=== PATIENT | female | born 1955 | race Caucasian/White ===

== ENCOUNTER 2016-04-12 19:18 | Emergency (ER) | payer MEDICARE, OTHER ==
[~2016-04-12] VITALS: Ht 157.5 cm; Wt 82.6 kg
[~2016-04-12 19:18] MED LIST: ALPR0.25 PO; CARV3.12 PO; ROPI1TAB PO; SERT100T PO; SIMV40TA3 PO; TRAM50TA PO; ZOLP10TA PO
[2016-04-12 20:08] VITALS: BP 142/67
[2016-04-12] MEDS ORDERED: PROMETH/CODEINE 6.25/10MG 5 ML SYRUP. PO ONE (20:45)
[2016-04-12] MEDS ORDERED: DEXAMETHASONE SOD PHOS 20 MG/5 ML VIAL. IM ONE (20:45)
[2016-04-12] MEDS ORDERED: IPRATRPIUM/ALBUTEROL 0.5/2.5MG 3 ML NEBU. NEB ONE (20:45)
[2016-04-12] MEDS ORDERED: PROAIR RESPICL90 MCG IH (20:59)
[2016-04-12] MEDS ORDERED: PROM118S2 PO (20:59)
[2016-04-12] MEDS ORDERED: BENZ100C PO (20:59)
--- NOTE | 2016-04-12 21:00 | PHYS DOC ---
Past Medical History Past Medical History: Anxiety, Depression, Fibromyalgia, High Cholesterol, Hypertension, Other Additional Past Medical Histor: RLS, insomnia Past Surgical History: Hysterectomy Alcohol Use: None Drug Use: None Adult General Chief Complaint Chief Complaint: COUGH HPI HPI Patient is a 60 year old female with history of anxiety, depression, fibromyalgia, COPD, smoking, who presents today with a productive cough for 1 month. Patient states she was seen by the primary care doctor a week ago and was put on the Z-Laz which she completed yesterday as well as prednisone. Patient states she is still coughing and wheezing. Patient denies any fever. Review of Systems Review of Systems Constitutional: Denies fever or chills [] Eyes: Denies change in visual acuity, redness, or eye pain [] HENT: Denies nasal congestion or sore throat [] Respiratory: Cough and wheezing Cardiovascular: No additional information not addressed in HPI [] GI: Denies abdominal pain, nausea, vomiting, bloody stools or diarrhea [] : Denies dysuria or hematuria [] Musculoskeletal: Denies back pain or joint pain [] Integument: Denies rash or skin lesions [] Neurologic: Denies headache, focal weakness or sensory changes [] Endocrine: Denies polyuria or polydipsia [] Current Medications Current Medications Current Medications Medications (Trade) Dose Ordered Sig/Radha Start Time Stop Time Status Last Admin Dose Admin Albuterol/ Ipratropium (Duoneb) 3 ml 1X ONCE 04/12/16 20:45 04/12/16 20:46 DC Dexamethasone Sodium Phosphate (Decadron) 10 mg 1X ONCE 04/12/16 20:45 04/12/16 20:48 DC Promethazine HCl/ Codeine (Phenergan With Codeine) 10 ml 1X ONCE 04/12/16 20:45 04/12/16 20:48 DC Allergies Allergies Allergies Coded Allergies Type Severity Reaction Last Updated Verified No Known Drug Allergies 11/13/13 No Physical Exam Physical Exam Constitutional: Well developed, well nourished, no acute distress, non-toxic appearance. [] HENT: Normocephalic, atraumatic, bilateral external ears normal, oropharynx moist, no oral exudates, nose normal. [] Eyes: PERRLA, EOMI, conjunctiva normal, no discharge. [] Neck: Normal range of motion, no tenderness, supple, no stridor. [] Cardiovascular:Heart rate regular rhythm, no murmur [] Lungs & Thorax: Small amount of wheezing to posterior lung bases. Abdomen: Bowel sounds normal, soft, no tenderness, no masses, no pulsatile masses. [] Skin: Warm, dry, no erythema, no rash. [] Back: No tenderness, no CVA tenderness. [] Extremities: No tenderness, no cyanosis, no clubbing, ROM intact, no edema. [] Neurologic: Alert and oriented X 3, normal motor function, normal sensory function, no focal deficits noted. [] Psychologic: Affect normal, judgement normal, mood normal. [] Current Patient Data Vital Signs Vital Signs Date Time Temp Pulse Resp B/P Pulse Ox O2 Delivery O2 Flow Rate FiO2 04/12/16 20:08 97.9 86 18 98 Room Air 97.9 EKG EKG [] Radiology/Procedures Radiology/Procedures [] Course & Med Decision Making Course & Med Decision Making Pertinent Labs and Imaging studies reviewed. (See chart for details) Patient is in the ED with cough and wheezing for 1 month. She was already seen by the primary care doctor and just finished Z-Laz as well as prednisone yesterday. She is a smoker and we talked about smoking cessation. Chest x-ray interpreted by Dr. Lee is negative for any acute findings. She probably has acute viral bronchitis. Encouraged to continue using breathing treatments at home. Given a DuoNeb treatment and Decadron IM in the ED. Lungs cleared up. Instructed to follow-up with the primary care doctor in the next 7 days. Instructed to return to the ED symptoms worsen. Dragon Disclaimer Dragon Disclaimer This electronic medical record was generated, in whole or in part, using a voice recognition dictation system. Departure Departure Impression: Primary Impression: Acute bronchitis Additional Impression: Smoking addiction Disposition: HOME, SELF-CARE Condition: STABLE Referrals: YUAN DALAL MD (PCP) follow up with your doctor in one week Patient Instructions: Acute Bronchitis, [id number] Additional Instructions: You were seen for ongoing acute bronchitis. Consider smoking cessation. Follow- up with your own primary care doctor in the next 7 days, continue doing the breathing treatments. Come back to the emergency room for any concerning symptoms. Scripts Promethazine Hcl/Codeine (Promethazine-Codeine Syrup)118 Ml Syrup5 Ml PO Q4- 6HRS #80 ML Prov:BIBIANA NOLASCO APRN 04/12/16 Benzonatate (Tessalon Perle)100 Mg Capsule1 Cap PO TID #30 CAP Prov:BIBIANA NOLASCO APRN 04/12/16 Albuterol Sulfate (Proair Respiclick)90 Mcg Aer.[id number] Puff IH PRN Q6HRS PRN SHORTNESS OF BREATH #1 INHALER Prov:BIBIANA NOLASCO APRN 04/12/16 Problem Qualifiers Primary Impression: Acute bronchitis Bronchitis organism: unspecified organism Qualified Code: J20.9 - Acute bronchitis, unspecified BIBIANA NOLASCO APRN Apr 12, 2016 21:00
--- NOTE | 2016-04-13 08:01 | RAD ---
Chest, 2 views, 04/12/2016:. History: Flulike symptoms Comparison is made to a study from 06/26/2007. The heart size and pulmonary vascularity are normal. No pulmonary infiltrates are seen. There is no evidence of pleural fluid. Mild spurring is present in the spine. IMPRESSION: No acute cardiopulmonary abnormality is detected.
== END 2016-04-12 21:46 | disposition home or self-care (01) ==
LOC: ER 19:18
DX: J20.9 Acute bronchitis, unspecified (principal); J44.9 Chronic obstructive pulmonary disease, unspecified; E78.00 Pure hypercholesterolemia, unspecified; F32.9 Major depressive disorder, single episode, unspecified; I10 Essential (primary) hypertension; G47.00 Insomnia, unspecified; F41.9 Anxiety disorder, unspecified; M79.7 Fibromyalgia; F17.200 Nicotine dependence, unspecified, uncomplicated; Z90.710 Acquired absence of both cervix and uterus
CPT/HCPCS: 71020; 94250; 94640; 96372; 99284; J1100; J7620

== ENCOUNTER 2017-03-19 16:50 | Emergency (ER) | payer MEDICARE ==
[2017-03-19 17:08] LABS: ADD MAN DIFF? NO
[2017-03-19 17:10] LABS: BASO # 0.1 x10^3/uL (0.0-0.2); BASO % 1 % (0-3); EOS # 0.3 x10^3/uL (0.0-0.7); EOS % 2 % (0-3); HEMATOCRIT 41.7 % (36.0-47.0); HEMOGLOBIN 13.8 g/dL (12.0-15.5); LYMPH # 5.7 x10^3/uL (1.0-4.8); LYMPH % 48 % (24-48); MEAN CORPUSCULAR HEMOGLOBIN 31 pg (25-35); MEAN CORPUSCULAR HGB CONC 33 g/dL (31-37); MEAN CORPUSCULAR VOLUME 94 fL (79-100); MONO % 8 % (0-9); NEUT % 41 % (31-73); PLATELET COUNT 253 x10^3/uL (140-400); RED BLOOD COUNT 4.45 x10^6/uL (3.50-5.40); RED CELL DISTRIBUTION WIDTH 12.8 % (11.5-14.5); WHITE BLOOD COUNT 12.1 x10^3/uL (4.0-11.0)
[2017-03-19] MEDS: IV NORMAL SALINE 1000ML BAG 1,000 ML IV (17:15)
[2017-03-19 17:26] LABS: ANION GAP 16 (6-14); BLOOD UREA NITROGEN 16 mg/dL (7-20); BUN/CREATININE RATIO 18 (6-20); CALCIUM 8.7 mg/dL (8.5-10.1); CARBON DIOXIDE 22 mmol/L (21-32); CHLORIDE 102 mmol/L (98-107); CREATININE 0.9 mg/dL (0.6-1.0); GFR 64.1; GLUCOSE 130 mg/dL (70-99); POTASSIUM 3.6 mmol/L (3.5-5.1); SODIUM 140 mmol/L (136-145)
[2017-03-19 17:28] LABS: ETHANOL < 10 mg/dL (0-10)
[2017-03-19 17:32] LABS: ALBUMIN 3.4 g/dL (3.4-5.0); ALBUMIN/GLOBULIN RATIO 0.8 (1.0-1.7); ALK PHOS 106 U/L (46-116); ALT (SGPT) 14 U/L (14-59); AST (SGOT) 18 U/L (15-37); LIPASE 177 U/L (73-393); MAGNESIUM 1.6 mg/dL (1.8-2.4); TOTAL BILIRUBIN 0.4 mg/dL (0.2-1.0); TOTAL PROTEIN 7.8 g/dL (6.4-8.2)
[2017-03-19 17:41] LABS: NT-PRO BNP < 5 pg/mL (0-124)
[2017-03-19] MEDS: MAGNESIUM OXIDE 400 MG TABLET PO (18:09)
[2017-03-19] MEDS: LORazepam 1 MG TABLET PO (18:30)
== END 2017-03-19 18:41 | disposition home or self-care (01) ==
LOC: ER 16:50
DX: F13.239 Sedative, hypnotic or anxiolytic dependence with withdrawal, unspecified (principal); R56.9 Unspecified convulsions; T42.4X5A Adverse effect of benzodiazepines, initial encounter; E83.42 Hypomagnesemia; F41.9 Anxiety disorder, unspecified; F32.9 Major depressive disorder, single episode, unspecified; M79.7 Fibromyalgia; E78.00 Pure hypercholesterolemia, unspecified; I10 Essential (primary) hypertension; G25.81 Restless legs syndrome; G47.00 Insomnia, unspecified; Z90.710 Acquired absence of both cervix and uterus; Y92.89 Other specified places as the place of occurrence of the external cause
CPT/HCPCS: 36415; 70450; 80053; 83690; 83735; 83880; 85025; 96361; 96374; 99285-25; G0480; J2060; J7030

== ENCOUNTER 2017-03-27 14:16 | Emergency (ER) | payer MEDICARE ==
[2017-03-27 15:24] LABS: ADD MAN DIFF? NO
[2017-03-27] MEDS: IV NORMAL SALINE 1000ML BAG 1,000 ML IV ×2 (15:28)
[2017-03-27 15:29] LABS: BASO # 0.1 x10^3/uL (0.0-0.2); BASO % 1 % (0-3); EOS # 0.2 x10^3/uL (0.0-0.7); EOS % 2 % (0-3); HEMATOCRIT 41.6 % (36.0-47.0); HEMOGLOBIN 14.1 g/dL (12.0-15.5); LYMPH # 3.8 x10^3/uL (1.0-4.8); LYMPH % 38 % (24-48); MEAN CORPUSCULAR HEMOGLOBIN 31 pg (25-35); MEAN CORPUSCULAR HGB CONC 34 g/dL (31-37); MEAN CORPUSCULAR VOLUME 92 fL (79-100); MONO # 0.8 x10^3/uL (0.0-1.1); MONO % 8 % (0-9); NEUT # 5.2 x10^3uL (1.8-7.7); NEUT % 52 % (31-73); PLATELET COUNT 250 x10^3/uL (140-400); RED BLOOD COUNT 4.54 x10^6/uL (3.50-5.40); WHITE BLOOD COUNT 10.1 x10^3/uL (4.0-11.0)
[2017-03-27 15:45] LABS: BILIRUBIN,URINE NEGATIVE (NEG); CLARITY,URINE CLEAR; COLOR,URINE YELLOW; GLUCOSE,URINE NEGATIVE (NEG); NITRITE,URINE NEGATIVE (NEG); PROTEIN,URINE NEGATIVE (NEG-TRACE); UROBILINOGEN,URINE 0.2 mg/dL (0.2 mg/dL)
[2017-03-27 15:50] LABS: ANION GAP 14 (6-14); BARBITURATES NEG (NEG); BENZODIAZEPINES POS (NEG); BLOOD UREA NITROGEN 14 mg/dL (7-20); BUN/CREATININE RATIO 14 (6-20); CALCIUM 9.8 mg/dL (8.5-10.1); CANNABINOIDS NEG (NEG); CARBON DIOXIDE 24 mmol/L (21-32); CHLORIDE 100 mmol/L (98-107); COCAINE NEG (NEG); GFR 56.7; GLUCOSE 124 mg/dL (70-99); METHADONE NEG (NEG); OPIATES NEG (NEG); PHENCYCLIDINE NEG (NEG); POTASSIUM 3.8 mmol/L (3.5-5.1); SODIUM 138 mmol/L (136-145)
[2017-03-27 15:53] LABS: AMPHETAMINE/METHAMPHETAMINE POS (NEG); ETHANOL, URINE NEG (NEG)
[2017-03-27 15:56] LABS: ALBUMIN 3.8 g/dL (3.4-5.0); ALBUMIN/GLOBULIN RATIO 0.8 (1.0-1.7); ALK PHOS 126 U/L (46-116); ALT (SGPT) 11 U/L (14-59); AST (SGOT) 15 U/L (15-37); TOTAL BILIRUBIN 0.5 mg/dL (0.2-1.0); TOTAL PROTEIN 8.4 g/dL (6.4-8.2)
[2017-03-27 15:56] LABS: ETHANOL < 10 mg/dL (0-10)
[2017-03-27 15:59] LABS: BACTERIA,URINE FEW /HPF (0-FEW); HYALINE CASTS, URINE FEW /HPF; SQUAMOUS EPITHELIAL CELL,UR MOD /LPF; WBC,URINE OCC /HPF (0-4)
== END 2017-03-27 17:50 | disposition home or self-care (01) ==
LOC: ER 14:16
DX: R56.9 Unspecified convulsions (principal); E78.00 Pure hypercholesterolemia, unspecified; I10 Essential (primary) hypertension; G25.81 Restless legs syndrome; M79.7 Fibromyalgia; G40.909 Epilepsy, unspecified, not intractable, without status epilepticus
CPT/HCPCS: 36415; 70450; 71045; 72125; 80053; 80307; 81001; 85025; 93005; 96360; 96361; 99285-25; G0480; J7030

== ENCOUNTER → 2017-04-09 | Outpatient (CLI) | payer MEDICARE ==
[2017-04-09 16:15] LABS: BARBITURATES NEG (NEG); BENZODIAZEPINES POS (NEG); CANNABINOIDS NEG (NEG); COCAINE NEG (NEG); METHADONE NEG (NEG); OPIATES NEG (NEG); PHENCYCLIDINE NEG (NEG)
[2017-04-09 16:17] LABS: IONIZED CALCIUM 1.22 mmol/L (1.13-1.32)
[2017-04-09 16:20] LABS: BLOOD UREA NITROGEN 13 mg/dL (7-20)
[2017-04-09 16:20] LABS: CREATININE 0.8 mg/dL (0.6-1.0); GFR 73.4
[2017-04-09 16:21] LABS: AMPHETAMINE/METHAMPHETAMINE NEG (NEG); ETHANOL, URINE NEG (NEG)
[2017-04-09 16:35] LABS: THYROID STIM HORMONE (TSH) 3.663 uIU/mL (0.358-3.74)
[2017-04-09 18:50] LABS: VITAMIN-B12 314 pg/mL (247-911)
== END | disposition home or self-care (01) ==
LOC: LAB 15:34
DX: R56.9 Unspecified convulsions (principal); E55.9 Vitamin D deficiency, unspecified
CPT/HCPCS: 36415; 80307; 82306; 82310; 82565; 82607; 84443; 84520

== ENCOUNTER → 2017-04-16 | Outpatient (CLI) | payer MEDICARE ==
[2017-04-16] MEDS: GADOBUTROL 10 MMOL/10 ML VIAL IV ×2 (09:30)
== END | disposition home or self-care (01) ==
LOC: MRI 09:21
DX: R56.9 Unspecified convulsions (principal); R25.1 Tremor, unspecified; I10 Essential (primary) hypertension; Z87.891 Personal history of nicotine dependence
CPT/HCPCS: 70553; A9585

== ENCOUNTER → 2017-05-08 | Outpatient (CLI) | payer MEDICARE | END | disposition home or self-care (01) | LOC: RT 07:55 | DX: R56.9 Unspecified convulsions (principal) | CPT/HCPCS: 95816 ==